=== PATIENT | female | born 1965 | race Caucasian/White ===

== ENCOUNTER 2016-08-29 09:17 | Emergency (ER) | payer BC ==
[~2016-08-29] VITALS: Ht 160 cm; Wt 72.7 kg
[~2016-08-29 09:17] MED LIST: ANUSOL-HC21 GM PR; ENULOSE10 GM/15 M PO; FLOMAX0.4 MG PO; NAPROXEN500 MG PO; NO MEDS; PERCOCET 5/31 TABLET PO; PREDNISONE20 MG PO; PROVENTIL17 GM IH; ZOFRAN ODT4 MG PO
[2016-08-29 09:54] LABS: HEMATOCRIT 45.5 % (36.0-46.0); MCH 29.3 PG (29.0-34.0); MCHC 33.6 G/DL (30.0-36.0); MEAN PLAT.VOLUME 10.5 uM^3 (9.5-12.4); PLATELET COUNT 276 K/uL (156-360); RBC DIS.WIDTH-CV 13.4 % (11.8-14.6); RBC DIS.WIDTH-SD 42.7 % (39-53); RED BLOOD COUNT 5.23 M/uL (3.80-5.20); WHITE BLOOD COUNT 5.4 K/uL (4.1-10.2)
[2016-08-29 10:03] LABS: CHLORIDE 110 mEq/L (99-109); INTER. NORMALIZED RATIO 1.1; POTASSIUM 4.4 mEq/L (3.7-5.4); PROTHROMBIN TIME 11.1 (9.2-11.2); PTT 27.8 (25-32); SODIUM 141 mEq/L (136-147)
[2016-08-29 10:05] LABS: GLUCOSE 94 mg/dL (70-99)
[2016-08-29 10:06] LABS: ANION GAP 7 MEQ/L (2-14)
[2016-08-29 10:09] LABS: GFR ESTIMATE (CALCULATED) > 59 mL/min/; UREA NITROGEN (BUN) 14 mg/dL (9-23)
[2016-08-29 10:28] LABS: ADD MIUA? YES; BILIRUBIN NEGATIVE; BLOOD LARGE; COLOR YELLOW ((YELLOW)); GLUCOSE (STRIP) NEGATIVE; KETONES NEGATIVE; LEUKOCYTES NEGATIVE; NITRITE NEGATIVE; PROTEIN (STRIP) NEGATIVE; SPECIFIC GRAVITY 1.019 (1.000-1.030); UROBILINOGEN 0.2 MG/DL (0.2-1.0)
[2016-08-29 10:52] LABS: RED BLOOD CELLS TNTC /HPF (0-5); WHITE BLOOD CELLS 0-5 /HPF (0-5)
[2016-08-29 10:53] LABS: BACTERIA 1+ /HPF; EPITHELIAL CELLS 2+ /HPF; MUCUS 3+ /LPF
[2016-08-29] MEDS ORDERED: CIPRO500 MG PO (12:18)
[2016-08-29] MEDS ORDERED: PERCOCET 5/31 TABLET PO (12:18)
[2016-08-29] MEDS ORDERED: PYRIDIUM100 MG PO (12:18)
[2016-08-29 12:33] VITALS: BP 151/67
== END 2016-08-29 12:34 | disposition home or self-care (01) ==
LOC: EME 09:17
PROVIDERS: Emergency Medicine
DX: R31.9 Hematuria, unspecified (principal); Z87.442 Personal history of urinary calculi
CPT/HCPCS: 76770; 80048; 81003; 85027; 85610; 85730; 87086; 99281; 99285; J1885; J7030

== ENCOUNTER 2016-10-01 08:49 | Emergency (ER) | payer BC ==
[~2016-10-01] VITALS: Ht 160 cm; Wt 67.4 kg
[~2016-10-01 08:49] MED LIST changes: +CIPRO500 MG PO; +PYRIDIUM100 MG PO
[2016-10-01] MEDS ORDERED: DULCOLAX5 MG PO (10:26)
[2016-10-01] MEDS ORDERED: ZOFRAN ODT4 MG PO (10:27)
[2016-10-01 10:44] VITALS: BP 148/89
== END 2016-10-01 10:45 | disposition home or self-care (01) ==
LOC: EME 08:49
DX: K59.00 Constipation, unspecified (principal); Z87.442 Personal history of urinary calculi
CPT/HCPCS: 74022; 99281; 99284